=== PATIENT | female | born 1955 | race Caucasian/White ===

== ENCOUNTER 2017-02-28 21:49 | Emergency (ER) | payer BC ==
[2017-02-28] MEDS ORDERED: Ketorolac INJ* 30 MG/ML 1 ML VIAL IV PUSH ONE (22:08)
[2017-02-28] MEDS ORDERED: HYDROmorphone* 1 MG/ML 1 ML SYR IV SLOW PU ONE (22:14)
[2017-02-28] MEDS ORDERED: Ondansetron INJ* 2 MG/ML VIAL IV ONE (22:16)
[2017-02-28] MEDS ORDERED: NS 0.9% 1000 ML* 1,000 ML IV ONE (22:16)
[2017-02-28 22:32] LABS: Hematocrit 40 % (35-47); Hemoglobin 13.1 g/dl (12.0-16.0); Mean Corpuscular HGB Conc 33 g/dl (31-36); Mean Corpuscular Hemoglobin 28 pg (27-31); Mean Corpuscular Volume 86 fL (80-97); Mean Platelet Volume 10 um3 (7.4-10.4); Red Blood Count 4.63 10^6/ul (4.0-5.4); Red Cell Distribution Width 14 % (10.5-15); White Blood Count 10.1 10^3/ul (3.5-10.8)
[2017-02-28 22:46] LABS: Albumin 3.9 g/dL (3.2-5.2); BUN/Creatinine Ratio 16.5 (8-20); EGFR African American 86.9 (>60); EGFR Non-African American 67.5 (>60); Globulin 2.7 g/dL (2-4); Potassium 3.8 mmol/L (3.5-5.0); Total Bilirubin 0.5 mg/dL (0.2-1.0); Total Protein 6.6 g/dL (6.4-8.9)
--- NOTE | 2017-03-01 00:48 | ED ---
Lower Extremity - HPI Summary HPI Summary: 61F presents with left knee pain today. She slipped and had a mechanical fall onto her left knee with all her weight. She drove herself here. She states it feels best when it is straight. She denies any numbness or tingling. She is not on any blood thinners. She denies any previous injury to the knee. She has not taken anything for pain. She is able to place weight on it with extreme pain. - History of Current Complaint Chief Complaint: EDExtremityLower Stated Complaint: LT KNEE INJURY Time Seen by Provider: 02/28/17 22:02 Hx Last Menstrual Period: Years ago. Pain Intensity: 9 - Allergies/Home Medications Allergies/Adverse Reactions: Allergies Allergy/AdvReac Type Severity Reaction Status Date / Time No Known Allergies Allergy Verified 12/10/12 07:55 PMH/Surg Hx/FS Hx/Imm Hx Endocrine/Hematology History: Denies: Hx Anticoagulant Therapy, Hx Diabetes, Hx Thyroid Disease Cardiovascular History: Denies: Hx Congestive Heart Failure, Hx Deep Vein Thrombosis, Hx Hypertension , Hx Myocardial Infarction, Hx Pacemaker/ICD Respiratory History: Denies: Hx Asthma, Hx Chronic Obstructive Pulmonary Disease (COPD), Hx Lung Cancer GI History: Reports: Hx Gastroesophageal Reflux Disease - SEE COMMENT, Hx Hiatal Hernia - LAPAROSCOPIC REPAIR WILL BE DONE 12/10/12 Denies: Hx Gall Bladder Disease, Hx Gastrointestinal Bleed, Hx Ulcer, Hx Urosepsis, Other GI Disorders History: Denies: Hx Kidney Stones, Hx Renal Disease, Other Problems/Disorders - current hematuria Musculoskeletal History: Reports: Hx Arthritis - FEET AND ? HANDS Sensory History: Reports: Hx Contacts or Glasses - GLASSES Denies: Hx Hearing Aid Opthamlomology History: Reports: Hx Contacts or Glasses - GLASSES Neurological History: Reports: Other Neuro Impairments/Disorders - 08/04 SWOLLEN PAINFUL HANDS, STILL AN ISSUE Denies: Hx Dementia, Hx Migraine, Hx Seizures, Hx Transient Ischemic Attacks (TIA) Psychiatric History: Reports: Hx Anxiety, Hx Depression - Surgical History Surgery Procedure, Year, and Place: Hiatal hernia repair 12/03, had some bleeding and was transfusion, 1991 Hx Anesthesia Reactions: Yes - VERY DIZZY POST CARPAL TUNNEL FOLLOWING IV REMOVAL Infectious Disease History: No Infectious Disease History: Denies: Hx Hepatitis, Hx Human Immunodeficiency Virus (HIV), Traveled Outside the [place] in Last 30 Days - Family History Known Family History: Positive: None, Cardiac Disease - Social History Alcohol Use: None Substance Use Type: Reports: None Smoking Status (MU): Never Smoked Tobacco Review of Systems Negative: Fever Negative: Chest Pain Negative: Shortness Of Breath Positive: Myalgia - left knee pain, Edema - left knee All Other Systems Reviewed And Are Negative: Yes Physical Exam Triage Information Reviewed: Yes Vital Signs On Initial Exam: Initial Vitals Temp Pulse Resp BP Pulse Ox 96.8 F 122 20 107/83 98 02/28/17 21:50 02/28/17 21:50 02/28/17 21:50 02/28/17 21:50 02/28/17 21:50 Vital Signs Reviewed: Yes Appearance: Positive: Pain Distress Skin: Positive: Warm, Dry Head/Face: Positive: Normal Head/Face Inspection Eyes: Positive: Normal, Conjunctiva Clear Respiratory/Lung Sounds: Positive: Clear to Auscultation, Breath Sounds Present Cardiovascular: Positive: Normal, RRR Musculoskeletal: Positive: Limited @ - left knee, Edema Left - large amount edema left knee, Other - good pulses, capillary refill < 2 secs, ecchymosis noted to left knee, on medial aspect of knee hematoma felt - Albers Coma Scale Coma Scale Total: 15 Diagnostics - Vital Signs Vital Signs Temp Pulse Resp BP Pulse Ox 02/28/17 22:35 18 02/28/17 22:21 96.8 F 106 20 107/83 98 02/28/17 21:50 96.8 F 122 20 107/83 98 - Laboratory Lab Results: Lab Results 02/28/17 02/28/17 Range/Units 22:25 22:25 WBC 10.1 (3.5-10.8) 10^3/ul RBC 4.63 (4.0-5.4) 10^6/ul Hgb 13.1 (12.0-16.0) g/dl Hct 40 (35-47) % MCV 86 (80-97) fL MCH 28 (27-31) pg MCHC 33 (31-36) g/dl RDW 14 (10.5-15) % Plt Count 238 (150-450) 10^3/ul MPV 10 (7.4-10.4) um3 Neut % (Auto) 68.4 (38-83) % Lymph % (Auto) 24.0 L (25-47) % [place] % (Auto) 5.0 (1-9) % Eos % (Auto) 2.1 (0-6) % Baso % (Auto) 0.5 (0-2) % Absolute Neuts (auto) 6.9 (1.5-7.7) 10^3/ul Absolute Lymphs (auto) 2.4 (1.0-4.8) 10^3/ul Absolute Monos (auto) 0.5 (0-0.8) 10^3/ul Absolute Eos (auto) 0.2 (0-0.6) 10^3/ul Absolute Basos (auto) 0.1 (0-0.2) 10^3/ul Absolute Nucleated RBC 0 10^3/ul Nucleated RBC % 0 Sodium 132 L (133-145) mmol/L Potassium 3.8 (3.5-5.0) mmol/L Chloride 100 L (101-111) mmol/L Carbon Dioxide 20 L (22-32) mmol/L Anion Gap 12 H (2-11) mmol/L BUN 14 (6-24) mg/dL Creatinine 0.85 (0.51-0.95) mg/dL Est GFR ( Amer) 86.9 (>60) Est GFR (Non-Af Amer) 67.5 (>60) BUN/Creatinine Ratio 16.5 (8-20) Glucose 218 H (70-100) mg/dL Calcium 9.0 (8.6-10.3) mg/dL Total Bilirubin 0.50 (0.2-1.0) mg/dL AST 14 (13-39) U/L ALT 14 (7-52) U/L Alkaline Phosphatase 60 (34-104) U/L Total Protein 6.6 (6.4-8.9) g/dL Albumin 3.9 (3.2-5.2) g/dL Globulin 2.7 (2-4) g/dL Albumin/Globulin Ratio 1.4 (1-3) Result Diagrams: 02/28/17 22:25 02/28/17 22:25 Lab Statement: Any lab studies that have been ordered have been reviewed, and results considered in the medical decision making process. - Radiology knee Xray Interpretation: No Acute Changes Radiology Interpretation Completed By: ED Physician - CT knee CT Interpretation: Positive (See Comments) - no fracture, large subcutaneous hematoma CT Interpretation Completed By: Radiologist Lower Extremity Course/Dx - Course Course Of Treatment: 61F presents with left knee pain s/p falling on it due to mechanical fall. able to ambulate with extreme pain. large amount of edema noted to left knee with ecchymosis. neurovascular intact. xray read by me as normal. got CT to make sure not missing a fx and see only hematoma. told to practice JESSEE. patient understands and agrees with plan - Diagnoses Differential Diagnosis/HQI/PQRI: Positive: Fracture (Closed), Sprain, Strain Provider Diagnoses: Left knee injury Discharge - Discharge Plan Condition: Good Disposition: HOME Patient Education Materials: Hematoma (ED) Forms: *Work Release Referrals: Aleida Laguna MD [Primary Care Provider] - Additional Instructions: Can take two dose of ibuprofen a day, use Tylenol otherwise for pain Apply ice, rest, elevate In couple days can apply heat to area and massage area Follow up with primary care physician within 5 days Return to ED if develop any new or worsening symptoms
[2017-03-01 01:51] VITALS: BP 123/83
--- NOTE | 2017-03-01 07:40 | RAD ---
INDICATION: Left knee pain after trip and fall injury COMPARISON: None TECHNIQUE: 4 view radiograph of the left knee. FINDINGS: The visualized bones are well-corticated and properly aligned. Degenerative changes include narrowing of the medial greater than lateral compartments with medial marginal osteophyte formation. There is mild narrowing of the patellofemoral joint seen on the lateral view. There is no radiographic evidence of joint effusion. There is no acute fracture, dislocation or other focal bony abnormality. On the lateral view there is apparent soft tissue swelling overlying the anterior knee. IMPRESSION: Soft tissue swelling overlying the anterior knee without underlying joint effusion or acute bony abnormality. If the patient's symptoms persist, follow-up imaging is recommended.
--- NOTE | 2017-03-01 07:54 | RAD ---
INDICATION: Left knee pain after a fall COMPARISON: Same day radiograph of the knee acquired at 2253 hours TECHNIQUE: Noncontrast CT examination of the left knee. Axial images were acquired and sagittal and coronal reformats were created and independently analyzed. FINDINGS: Adjacent to the distal medial anterior quadricep musculature there is a heterogeneous fluid collection measuring approximately 9.1 x 4.8 cm in the axial plane and 10.2 cm in the cephalocaudal projection. There is infiltration of the overlying subcutaneous fat as well as a lesser extension of heterogeneously attenuating material overlying the lateral quadriceps musculature and overlying the knee. There is no acute fracture or dislocation of the knee. Degenerative changes include narrowing of all 3 compartments with marginal osteophyte formation. There is no definite knee joint effusion. IMPRESSION: CT findings are most consistent with a perimuscular hematoma mostly overlying the distal right medial thigh quadricep musculature. There is no acute fracture, dislocation or effusion of the left knee joint.
== END 2017-03-01 01:50 | disposition home or self-care (01) ==
LOC: ED 21:49
DX: S89.92XA Unspecified injury of left lower leg, initial encounter (principal); S80.02XA Contusion of left knee, initial encounter; W01.0XXA Fall on same level from slipping, tripping and stumbling without subsequent striking against object, initial encounter; Y93.9 Activity, unspecified; Y92.9 Unspecified place or not applicable; K21.9 Gastro-esophageal reflux disease without esophagitis; F41.9 Anxiety disorder, unspecified; F32.9 Major depressive disorder, single episode, unspecified
CPT/HCPCS: 36415; 80053; 85025; 96361; 96374; 96375; 99283; J1170; J1885; J2405

== ENCOUNTER 2017-03-11 16:48 | Emergency (ER) | payer BC ==
[2017-03-11 17:32] VITALS: BP 149/69
--- NOTE | 2017-03-11 20:12 | UC ---
Jay Rivera Benjamin, scribed for Radha Leggett MD on 03/11/17 at 1915 . Knee Pain HPI - HPI Summary HPI Summary: 61yo female c/o left knee pain after a recent mechanical fall. Pt was seen on the ED at 02/28/17 for her knee where she had plain xray and a CT scan that ruled out fracture, but showed perimuscular hematoma. Since discharge, pt developed blister on her knee the next day, approximately 10 hrs after the initial fall. Blisters then opened spontaneously. Pt has not seen another provider since she was in the ED on 02/28/17. Pt came to for increasing pain. Left knee is warm, swollen, discolored, and bruised. Pt is not diabetic, is not on blood thinners. 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 - History of Current Complaint Chief Complaint: UCLowerExtremity Stated Complaint: LEG COMPLAINT Hx Obtained From: Patient Hx Last Menstrual Period: Years ago. ?: No Onset/Duration: Gradual Onset, Lasting Weeks - since 02/28/17, Still Present Severity Initially: Mild Severity Currently: Mild Location Of Injury: Left knee Pain Intensity: 6 Pain Scale Used: 0-10 Numeric Character: Aching, Stiffness Aggravating Factor(s): Movement, Weight Bearing, Prolonged Standing Alleviating Factor(s): Nothing Associated Signs And Symptoms: Positive: Swelling, Redness - open blisters and dark skin on the knee, Bruising Able to Bear Weight: Yes - Allergies/Home Medications Allergies/Adverse Reactions: Allergies Allergy/AdvReac Type Severity Reaction Status Date / Time No Known Allergies Allergy Verified 12/10/12 07:55 PMH/Surg Hx/FS Hx/Imm Hx Previously Healthy: Yes Other History Of: Negative For: HIV, Hepatitis B, Hepatitis C, Anticoagulant Therapy - Surgical History Surgical History: Yes Surgery Procedure, Year, and Place: Hiatal hernia repair 12/03, had some bleeding and was transfusion, 1991 - Family History Known Family History: Positive: Cardiac Disease, Other - depression Negative: Hypertension - Social History Occupation: Employed Full-time - teacher Lives: Alone Alcohol Use: None Substance Use Type: None Smoking Status (MU): Former Smoker Household Exposure Type: Pipe - Immunization History Most Recent Tetanus Shot: Within LAST 2 YRS Review of Systems Constitutional: Negative Skin: Bruising - and swelling on the left knee, ecchymosis left ankle and foot and left thigh, Other - dark skin, open area left knee Eyes: Negative ENT: Negative Respiratory: Negative Cardiovascular: Negative Gastrointestinal: Negative Genitourinary: Negative Motor: Negative Neurovascular: Negative Musculoskeletal: Myalgia Neurological: Negative Psychological: Negative All Other Systems Reviewed And Are Negative: Yes Physical Exam Triage Information Reviewed: Yes Appearance: Well-Appearing, Well-Nourished, Pain Distress Vital Signs: Initial Vital Signs Temp 98 F 03/11/17 17:29 Pulse 76 03/11/17 17:29 Resp 18 03/11/17 17:29 BP 149/69 03/11/17 17:29 Pulse Ox 99 03/11/17 17:29 Vital Signs Reviewed: Yes Eyes: Positive: Conjunctiva Clear ENT: Positive: Hearing grossly normal. Negative: Muffled/hoarse voice Neck: Positive: Supple Respiratory: Positive: Lungs clear, Normal breath sounds, No respiratory distress Cardiovascular: Positive: RRR, No Murmur, Pulses Normal, Brisk Capillary Refill Musculoskeletal: Positive: Strength Intact, ROM Limited @ - ROM limited due to swelling and pain left knee. Able to extend up to 160 degrees and supervisor paper products to 90degrees Neurological: Positive: Alert, Muscle Tone Normal Psychological Exam: Normal Skin: Positive: Other - 8x5cm of brown skin in medial left knee. 3cm open area at the base of the brown skin, with white areas in it. 2cm area of brown skin on left suprapatellar. 2cm brown skin at patella from the original fall. Discoloration and purple ecchymosis left knee with extensive swelling. Knee is warm to touch. No open drainage. Purple ecchymosis on medial left ankle and medial left foot, left MTP joints, and left toes. 15cm purple and yellow ecchymosis on the left lateral thigh. 17cm in diameter purple ecchymosis in left knee with diffuse swelling. Knee Pain Course/Dx - Course Course Of Treatment: Reviewed medication lists and known allergies. 61yo female who was seen in ED on 02/28/17 by Fabi SANDERS for left knee contusion s/ p mechanical fall returns to with worsening symptoms. Since her discharge, pt developed a blister on the left knee, which opened spontaneously. Pt's left knee is warm, swollen, discolored, and bruised and has decreased ROM. Pt's CT in the ED showed perimuscular hematoma without a fracture. Pt [place] be sent [place] [facility] [place] higher level of care, for evaluation of the knee swelling, pain, limited ROM, open skin area over the knee with concern for possible infected hematoma, or septic knee joint, or "scalded skin" infection of the knee. - Differential Dx/Diagnosis Provider Diagnoses: Evaluation for infected knee hematoma vs septic knee vs "scalded skin" infection. High blood pressure without diagnosis of hypertension. - Physician Notifications Discussed Patient Care With: Oralia Seay - regarding ED transfer Time Discussed With Above Provider: 19:35 Discharge - Discharge Plan Condition: Stable Disposition: AGAINST MEDICAL ADVICE Discharge Disposition Comment: pt will go to ED by private car Referrals: Aleida Laguna MD [Primary Care Provider] - The documentation as recorded by the Jay cabrera Benjamin accurately reflects the service I personally performed and the decisions made by , Radha Leggett MD.
== END 2017-03-11 19:51 | disposition left against medical advice (07) ==
LOC: UCEAST 16:48
DX: L08.9 Local infection of the skin and subcutaneous tissue, unspecified (principal); M25.562 Pain in left knee; R03.0 Elevated blood-pressure reading, without diagnosis of hypertension; Z87.891 Personal history of nicotine dependence
CPT/HCPCS: 99212; G0463

== ENCOUNTER 2017-03-11 20:19 | Emergency (ER) | payer BC ==
--- NOTE | 2017-03-11 21:50 | ED ---
Lower Extremity - HPI Summary HPI Summary: 61F presents with left knee pain after mechanical fall on 03/01. She had CT which did not see fracture only hematoma. I saw the patient at this visit and she had a large hematoma at this point. She develop a blister the next day after the fall. At the time of the initial visit she had severe edema of the knee and at this time the edema is less than initial visit. Today she noticed increase pain and that one of the blisters popped and she noticed some drainage of the area. She noticed some inc redness and warm to the joint. She is still able to ambulate on the joint. She denies any fever. She states that the bruising has traveled down her leg. She is not diabetic and not on any blood thinners. She was seen at [facility] and transferred her for further evaluation. - History of Current Complaint Chief Complaint: EDExtremityLower Stated Complaint: LEFT KNEE COMPLAINT-SENT FROM [facility] Time Seen by Provider: 03/11/17 21:11 Hx Last Menstrual Period: Years ago. Pain Intensity: 5 - Allergies/Home Medications Allergies/Adverse Reactions: Allergies Allergy/AdvReac Type Severity Reaction Status Date / Time No Known Allergies Allergy Verified 03/11/17 20:23 PMH/Surg Hx/FS Hx/Imm Hx Endocrine/Hematology History: Denies: Hx Anticoagulant Therapy, Hx Diabetes, Hx Thyroid Disease Cardiovascular History: Denies: Hx Congestive Heart Failure, Hx Deep Vein Thrombosis, Hx Hypertension , Hx Myocardial Infarction, Hx Pacemaker/ICD Respiratory History: Denies: Hx Asthma, Hx Chronic Obstructive Pulmonary Disease (COPD), Hx Lung Cancer GI History: Reports: Hx Gastroesophageal Reflux Disease - SEE COMMENT, Hx Hiatal Hernia - LAPAROSCOPIC REPAIR WILL BE DONE 12/10/12 Denies: Hx Gall Bladder Disease, Hx Gastrointestinal Bleed, Hx Ulcer, Hx Urosepsis, Other GI Disorders History: Denies: Hx Kidney Stones, Hx Renal Disease, Other Problems/Disorders - current hematuria Musculoskeletal History: Reports: Hx Arthritis - FEET AND ? HANDS Sensory History: Reports: Hx Contacts or Glasses - GLASSES Denies: Hx Hearing Aid Opthamlomology History: Reports: Hx Contacts or Glasses - GLASSES Neurological History: Reports: Other Neuro Impairments/Disorders - 08/04 SWOLLEN PAINFUL HANDS, STILL AN ISSUE Denies: Hx Dementia, Hx Migraine, Hx Seizures, Hx Transient Ischemic Attacks (TIA) Psychiatric History: Reports: Hx Anxiety, Hx Depression - Surgical History Surgery Procedure, Year, and Place: Hiatal hernia repair 12/03, had some bleeding and was transfusion, 1991 Hx Anesthesia Reactions: Yes - VERY DIZZY POST CARPAL TUNNEL FOLLOWING IV REMOVAL Infectious Disease History: No Infectious Disease History: Denies: Hx Clostridium Difficile, Hx Hepatitis, Hx Human Immunodeficiency Virus (HIV), Hx of Known/Suspected MRSA, Hx Shingles, Hx Tuberculosis, Hx Known/ Suspected VRE, Hx Known/Suspected VRSA, History Other Infectious Disease, Traveled Outside the [place] in Last 30 Days - Family History Known Family History: Positive: None, Cardiac Disease, Other - depression Negative: Hypertension - Social History Alcohol Use: None Substance Use Type: Reports: None Smoking Status (MU): Former Smoker Review of Systems Negative: Fever Negative: Chest Pain Negative: Shortness Of Breath Positive: Arthralgia - left knee pain, Edema Positive: Other - redness to left knee All Other Systems Reviewed And Are Negative: Yes Physical Exam Triage Information Reviewed: Yes Vital Signs On Initial Exam: Initial Vitals Temp Pulse Resp BP Pulse Ox 98.6 F 93 18 112/69 100 03/11/17 20:22 03/11/17 20:22 03/11/17 20:22 03/11/17 20:22 03/11/17 20:22 Vital Signs Reviewed: Yes Appearance: Positive: Well-Appearing Skin: Positive: Other - 3cm by 2cm open area on anterior near with some yellow discharge present that does not appear to track anywhere with area of brown skin surrounding it. ecchymosis noted around the entire area. some ecchymosis noted to medial aspect of ankle and down in toes. Head/Face: Positive: Normal Head/Face Inspection Eyes: Positive: Normal, Conjunctiva Clear ENT: Positive: Normal ENT inspection, Pharynx normal, TMs normal Respiratory/Lung Sounds: Positive: Clear to Auscultation, Breath Sounds Present Cardiovascular: Positive: Normal, RRR Musculoskeletal: Positive: Limited @ - knee due to pain, Edema Left - knee moderate amount, Other - good pulses, capillary refill <2 secs, no extreme pain with passive ROM Diagnostics - Vital Signs Vital Signs Temp Pulse Resp BP Pulse Ox 03/11/17 20:22 98.6 F 93 18 112/69 100 - Laboratory Result Diagrams: 03/11/17 22:10 03/11/17 22:10 Lab Statement: Any lab studies that have been ordered have been reviewed, and results considered in the medical decision making process. Lower Extremity Course/Dx - Course Course Of Treatment: 61F presents with left knee pain for a week after fall. She is concerned today that got infected. on intial exam had no open area and no fracture seen on xray and CT but had large hematoma present. said that blister became present the day after and it popped and started to drain a little today. she says today she had inc pain and was warm to touch. no fever and afebrile on exam. labs normal wbc 9 and crp 17. patient seen with dr sorensen who also saw initial injury. to both of us area appears more cellulitic rather than infected hematoma. dr sorensen spoke with dr solomon who agreed with plan to start oral antibiotics and follow up with him. gave dose of ancef here and prescribed keflex 4 times a day. warned if devleop fever to return. patient understands and agrees with plan. - Diagnoses Differential Diagnosis/HQI/PQRI: Positive: Cellulitis, Contusion, Infection Provider Diagnoses: Traumatic hematoma of left knee, Cellulitis of left knee - Physician Notifications Discussed Care Of Patient With: dr pugh - dr sorensen discussed with dr pugh Time Discussed With Above Provider: 23:28 - follow up in office and place on oral antibiotics Discharge - Discharge Plan Condition: Good Disposition: HOME Prescriptions: Cephalexin CAP* [Keflex CAP*] 500 mg PO QID #40 cap Patient Education Materials: Cellulitis (ED) Forms: *Work Release Referrals: Sebastian Solomon MD [Medical Doctor] - Aleida Laguna MD [Primary Care Provider] - Additional Instructions: Take Keflex 4 times a day for 10 days, starting this morning Follow up with ortho Place ice on area, elevate Return to ED if develop fever, area of redness spreads, or any new or worsening symptoms
[2017-03-11 22:22] LABS: Hematocrit 34 % (35-47); Hemoglobin 11.4 g/dl (12.0-16.0); Mean Corpuscular HGB Conc 33 g/dl (31-36); Mean Corpuscular Hemoglobin 29 pg (27-31); Mean Corpuscular Volume 88 fL (80-97); Mean Platelet Volume 9 um3 (7.4-10.4); Red Blood Count 3.89 10^6/ul (4.0-5.4); Red Cell Distribution Width 15 % (10.5-15); White Blood Count 9.8 10^3/ul (3.5-10.8)
[2017-03-11 22:37] LABS: Albumin 3.9 g/dL (3.2-5.2); BUN/Creatinine Ratio 14.9 (8-20); EGFR African American 101.9 (>60); EGFR Non-African American 79.3 (>60); Potassium 3.8 mmol/L (3.5-5.0); Total Bilirubin 0.8 mg/dL (0.2-1.0); Total Protein 6.9 g/dL (6.4-8.9)
[2017-03-11] MEDS ORDERED: ceFAZolin VIAL(*) 1 GM in NS 0.9% 50 ML* 50 ML IVPB ONE (23:29)
[2017-03-12 00:33] VITALS: BP 117/50
== END 2017-03-12 00:32 | disposition home or self-care (01) ==
LOC: ED 20:19
DX: S80.02XS Contusion of left knee, sequela (principal); W19.XXXS Unspecified fall, sequela; L03.116 Cellulitis of left lower limb; Z87.891 Personal history of nicotine dependence
CPT/HCPCS: 36415; 80053; 83605; 85025; 86141; 87070; 87205; 96365; 99282; J0690

== ENCOUNTER 2017-11-23 18:49 | Emergency (ER) | payer BC ==
[2017-11-23 18:57] VITALS: BP 157/94
[2017-11-23] MEDS ORDERED: Amoxicillin/Clavulanate TAB* 875 MG PO ONE (19:22)
--- NOTE | 2017-11-23 19:22 | UC ---
Throat Pain/Nasal Jesus HPI - HPI Summary HPI Summary: 61 y/o female presents to the urgent care c/o sinus pressure and pain w/ yellowish nasal discharge for one month. Pt reports symptoms started w/ running nose and clear discharge. Then on 11/08/2017 she think she had the flu, she had fever, VILLAR, sore throat, nasal congestion and a dry cough. However, for the past week she has moderate sinus pressure , pain and VILLAR w/ yellowish nasal discharge , +PND. Pain is 5/10. Cough is better. Pt deneis fever, SOB, chest pain, N/V/D - History of Current Complaint Chief Complaint: UCRespiratory Stated Complaint: SINUS PAIN Time Seen by Provider: 11/23/17 19:12 Hx Obtained From: Patient Hx Last Menstrual Period: Years ago. ?: No Onset/Duration: Gradual Onset, Lasting Weeks - 4 weeks, Still Present, Worse Since - last week Severity: Moderate Pain Intensity: 5 Pain Scale Used: 0-10 Numeric Cough: Nonproductive - dry Associated Signs & Symptoms: Positive: Sinus Discomfort, Nasal Discharge. Negative: Fever, Rash - Epiglottits Risk Factors Epiglottis Risk Factors: Negative - Allergies/Home Medications Allergies/Adverse Reactions: Allergies Allergy/AdvReac Type Severity Reaction Status Date / Time No Known Allergies Allergy Verified 11/23/17 18:57 PMH/Surg Hx/FS Hx/Imm Hx Previously Healthy: Yes Psychological History: Anxiety, Depression Other History Of: Negative For: HIV, Hepatitis B, Hepatitis C, Anticoagulant Therapy - Surgical History Surgical History: Yes Surgery Procedure, Year, and Place: Hiatal hernia repair 12/03, had some bleeding and was transfusion, 1991 - Family History Known Family History: Positive: None, Cardiac Disease Negative: Hypertension Family History: depression - Social History Occupation: Employed Full-time Lives: With Family Alcohol Use: None Substance Use Type: None Smoking Status (MU): Former Smoker Household Exposure Type: Pipe - Immunization History Most Recent Tetanus Shot: Within LAST 2 YRS Review of Systems Constitutional: Fatigue Skin: Negative Eyes: Negative ENT: Nasal Discharge, Sinus Congestion, Sinus Pain/Tenderness Respiratory: Cough - dry Cardiovascular: Negative Gastrointestinal: Negative Genitourinary: Negative Motor: Negative Neurovascular: Negative Musculoskeletal: Negative Neurological: Headache Psychological: Negative Is Patient Immunocompromised?: No All Other Systems Reviewed And Are Negative: Yes Physical Exam Triage Information Reviewed: Yes Vital Signs: Initial Vital Signs Temp 98.0 F 11/23/17 18:54 Pulse 89 11/23/17 18:54 Resp 18 11/23/17 18:54 BP 157/94 11/23/17 18:54 Pulse Ox 98 11/23/17 18:54 - Additional Comments Vitals: reviewed General: Well developed, well-nourished female patient with NAD. Head and face: Normocephalic and atraumatic, Positive tenderness over the frontal and maxillary sinuses.. Eyes: PERRLA, EOMI x 2. Normal conjunctiva. No eye discharge. ENT: Ears and TM with normal limits. Nose: with yellowish discharge and erythematous mucosa. Pharynx with erythema, no exudate. Neck: Supple, no JVD, no carotid bruits and no lymphadenopathy. Lungs: clear, no rales, no rhonchi, no wheezes. CVS: RRR, S1 and S2 present no murmurs or gallops appreciated. Abdomen: soft nontender with positive bowel sounds. Extremities: no edema noted. Neuro: WNL. Skin: warm and dry Throat Pain/Nasal Course/Dx - Course Course Of Treatment: 61 y/o female presents to the urgent care c/o sinus pressure and pain w/ yellowish nasal discharge for one month. Pt reports symptoms started w/ running nose and clear discharge. Then on 11/08/2017 she think she had the flu, she had fever, VILLAR, sore throat, nasal congestion and a dry cough. However, for the past week she has moderate sinus pressure , pain and VILLAR w/ yellowish nasal discharge, +PND. Pain is 5/10. Cough is better. Pt deneis fever, SOB, chest pain, N/V/D. Hx obtained. Pt w/ bacterial sinusitis on examination. Pt with 4weeks of symptoms getting worse. Pt Rx Augmentin PO and flonase nasal spray. First dose given at the clinic today. Pt's BP is elevated today advised to decrease salt in diet, monitor BP and f/u with PCP for further management. Discharge instructions explained to Pt. Advised to Return to the clinic or PCP if symptoms do not improve.Pt understood and agreed with plan of care. - Differential Dx/Diagnosis Differential Diagnosis/HQI/PQRI: Influenza, Pharyngitis, Sinusitis, URI Provider Diagnoses: 1- Acute bacterial sinustis. 2-Elevated BP w/o Hx of HTN Discharge - Discharge Plan Condition: Stable Disposition: HOME Prescriptions: Amoxicillin/Clavulanate TAB* [Augmentin TAB 875*] 875 mg PO BID #19 tab Fluticasone NASAL SPRAY 50MCG* [Flonase NASAL SPRAY 50MCG*] 2 spray BOTH NARES DAILY #1 btl Patient Education Materials: Sinusitis (ED), Low-Sodium Diet (ED) Referrals: Fatou Lino MD [Primary Care Provider] - 1 Week Additional Instructions: 1- Please increase fluid intake and rest. take full course of antibiotic to avoid resistance 2-Use Flonase as directed to help drain fluid. Also buy saline drops to clear sinuses 3-Return to the clinic or PCP if symptoms do not improve for further management and treatment 4-Your BP is elevated today. please decrease salt in your diet, monitor BP and if it continues to be elevated please f/u with your PCP for further management
== END 2017-11-23 19:30 | disposition home or self-care (01) ==
LOC: UCEAST 18:49
DX: J01.90 Acute sinusitis, unspecified (principal); R03.0 Elevated blood-pressure reading, without diagnosis of hypertension; F41.9 Anxiety disorder, unspecified; F32.9 Major depressive disorder, single episode, unspecified; Z87.891 Personal history of nicotine dependence
CPT/HCPCS: 99212; A9270-GY; G0463